=== PATIENT | female | born 1965 | race Caucasian/White ===

== ENCOUNTER → 2019-06-23 | Outpatient (CLI) | payer BC ==
--- NOTE | 2019-06-23 16:29 | ECGEPIP ---
[facility] Test Date: 2019-06-23 Pat Name: GARETT DAO Department: Room: - Gender: Female Dean: NICO : 1965 Requested By: Alex Shankar Order Number: [id number] Reading MD: Isaac Turner Measurements Intervals [place] Rate: 66 P: 66 PA: 168 QRS: 27 QRSD: 90 T: 46 QT: 371 QTc: 391 Interpretive Statements SINUS RHYTHM Marginal nonspecific ST/T-wave abnormalities No prior tracing for comparison. Clincal correlation advised Electronically Signed on 06-23-2019 16:28:44 EDT by Isaac Turner
== END ==
LOC: M EKG 10:26
PROVIDERS: ATTEND Orthopaedic Surgery
DX: Z01.818 Encounter for other preprocedural examination (principal); M65.312 Trigger thumb, left thumb